=== PATIENT | male | born 1995 | race Caucasian/White ===

== ENCOUNTER 2017-03-30 22:13 | Emergency (ER) | payer MEDICAID ==
[~2017-03-30] VITALS: Ht 195.6 cm; Wt 115.7 kg
[2017-03-30 22:42] VITALS: BP_SYST 136
--- NOTE | 2017-03-30 22:42 | NUR ---
Patient triaged and placed in waiting room. VSS and patient appears in no acute distress at this time. Accompanied by family, awaiting available bed, and MD notified of need for MSE.
--- NOTE | 2017-03-30 23:24 | NUR ---
Note aristeo in EDM - 03/31/17 at 0045 by CAROL Patient triaged and placed in waiting room. VSS and patient appears in no acute distress at this time. Accompanied by family, awaiting available bed, and MD notified of need for MSE.
--- NOTE | 2017-03-30 23:30 | NUR ---
Patient to ER bed 8 to gown for evaluation. Side rails up.
--- NOTE | 2017-03-31 | NUR ---
PT C/O A "PAINFUL BUMP " ON BACK , DR ROME AWARE.
--- NOTE | 2017-03-31 01:00 | NUR ---
ER at bedside examining patient.
[2017-03-31] MEDS ORDERED: HYDROmorphone 1 MG INJ. 1 MG/ML AMPUL IVP ONE (02:30)
[2017-03-31] MEDS ORDERED: DIAZEPAM 10 MG/2 ML DISP.SYRIN IVP ONE (02:30)
--- NOTE | 2017-03-31 03:00 | NUR ---
# 20 gauge angiocath placed to lac. Use of asceptic technique. Opsite placed over site. Blood return noted. Blood for lab drawn from site. Flushed with 10 cc of normal saline. No evidence of infiltration noted. Patient tolerated well.
--- NOTE | 2017-03-31 05:00 | NUR ---
Telemetry strip printed, interpreted as nsr at bpm, and placed on the chart.
[2017-03-31] MEDS ORDERED: KETAMINE HCL 500 MG/10 ML VIAL IVP ONE (05:15)
[2017-03-31] MEDS ORDERED: LIDOCAINE 1% 10 MG/ML, 20 ML MDV INJ ONE (05:15)
--- NOTE | 2017-03-31 06:00 | NUR ---
Patient resting quietly. No acute distress noted. Vital signs within normal range.
[2017-03-31] MEDS ORDERED: NS 500 ML IV ONE (06:15)
--- NOTE | 2017-03-31 07:15 | NUR ---
I&D Procedure done by Dr Randy carreno using sterile technique. Lidocaine 1% used. Wound packed with . Adaptic, 4x4 and steve to wound. amt of bleeding noted. Wound care discussed w/ patient. Pt tolerated procedure well.
--- NOTE | 2017-03-31 08:09 | NUR ---
Patient given written and verbal discharge instructions and verbalizes understanding. ER MD discussed with patient the results and treatment provided. Patient in stable condition. ID arm band removed. IV catheter removed intact and dressing applied, no active bleeding. Rx of MOTRIN,PERCOCET given. Patient educated on pain management and to follow up with PMD. Pain Scale 3. Opportunity for questions provided and answered.
[2017-03-31 08:10] VITALS: BP_SYST 132
== END 2017-03-31 08:10 | disposition home or self-care (01) ==
LOC: SED 22:13
DX: L05.91 Pilonidal cyst without abscess (principal); F17.200 Nicotine dependence, unspecified, uncomplicated
CPT/HCPCS: 10080; 96361; 96374; 96375; 99152; 99285; J1170; J2001; J3360; J7030; 99284

== ENCOUNTER 2017-04-01 11:11 | Emergency (ER) | payer MEDICAID ==
[~2017-04-01] VITALS: Ht 195.6 cm; Wt 115.7 kg
[2017-04-01 11:11] VITALS: BP_SYST 123
[2017-04-01] MEDS: HYDROcodone/ACETAMIN 5-325 MG TAB (NORCO/ VICODIN) PO ONE (15:13)
[2017-04-01] MEDS: LIDOCAINE/EPI 2% 1:100000 20 ML VIAL INJ ONE (15:14)
[2017-04-01] MEDS: LORazepam 2 MG/ML VIAL (FOR ER USE) IM ONE (15:26)
[2017-04-01 16:33] VITALS: BP_SYST 123
== END 2017-04-01 16:33 | disposition home or self-care (01) ==
LOC: SED 11:11
DX: Z48.01 Encounter for change or removal of surgical wound dressing (principal)
CPT/HCPCS: 96372; 99283; J2060

== ENCOUNTER 2017-04-03 08:25 | Emergency (ER) | payer MEDICAID ==
[~2017-04-03] VITALS: Ht 195.6 cm; Wt 115.7 kg
[2017-04-03 08:29] VITALS: BP_SYST 146
--- NOTE | 2017-04-03 08:33 | NUR ---
Patient to ER bed 3 to gown for evaluation. Side rails up. Report given to Charissa CARLOS.
--- NOTE | 2017-04-03 08:38 | NUR ---
ER Dr. Kenney at bedside examining patient.
--- NOTE | 2017-04-03 08:51 | NUR ---
pt here for wound check , left side buttock abscess was I & D 3 days ago, dressing intact.packing removed by Dr bravo.wound healing well. dressing with 4x4 gauze.pt tolerated well.
--- NOTE | 2017-04-03 08:54 | NUR ---
Patient given written and verbal discharge instructions and verbalizes understanding. ER MD discussed with patient the results and treatment provided. Patient in stable condition. ID arm band removed. Rx of 0 given. Patient educated on pain management and to follow up with PMD. Pain Scale 0 . Opportunity for questions provided and answered.
[2017-04-03 08:56] VITALS: BP_SYST 146
== END 2017-04-03 08:54 | disposition home or self-care (01) ==
LOC: SED 08:25
DX: Z48.01 Encounter for change or removal of surgical wound dressing (principal)
CPT/HCPCS: 99282

== ENCOUNTER 2017-04-12 11:30 | Emergency (ER) | payer MEDICAID ==
[~2017-04-12] VITALS: Ht 195.6 cm; Wt 120.2 kg
[2017-04-12 11:38] VITALS: BP_SYST 136
[2017-04-12 12:03] VITALS: BP_SYST 135
== END 2017-04-12 12:01 | disposition home or self-care (01) ==
LOC: SED 11:30
DX: Z48.01 Encounter for change or removal of surgical wound dressing (principal)
CPT/HCPCS: 99283